=== PATIENT | female | born 1995 | race Hispanic/Latino ===

== ENCOUNTER 2022-08-11 19:00 | Inpatient (IN) | payer OTHER ==
[2022-08-11] MEDS ORDERED: Methylergonovine 0.2 MG/ML VIAL IM PRN (20:27)
[2022-08-11] MEDS ORDERED: Misoprostol 200 MCG TAB PR PRN (20:27)
[2022-08-11] MEDS ORDERED: Carboprost 250 MCG/ML AMP IM PRN (20:27)
[2022-08-11] MEDS ORDERED: Lidocaine 1% (PF) 30 ML VIAL SC PRN (20:27)
[2022-08-11] MEDS ORDERED: Promethazine HCl 25 MG/ML VIAL IM PRN (20:27)
[2022-08-11] MEDS ORDERED: Butorphanol Tartrate 1 MG/ML VIAL SLOW IVP PRN (20:27)
[2022-08-11] MEDS ORDERED: HYDROcodone/Acetaminophen 5/325 mg Tablet PO PRN (20:27)
[2022-08-11] MEDS ORDERED: Ondansetron PF 4 MG/2 ML Vial IVP PRN (20:27)
[2022-08-11] MEDS ORDERED: Diphenoxylate HCl/Atropine Tablet PO PRN (20:27)
[2022-08-11] MEDS ORDERED: Acetaminophen 500 MG TAB PO PRN (20:27)
[2022-08-11] MEDS ORDERED: Tranexamic Acid 1,000 MG/10 ML VIAL IVP PRN (20:27)
[2022-08-11] MEDS ORDERED: Ibuprofen 800 MG TAB PO PRN (20:27)
[2022-08-11] MEDS ORDERED: Fentanyl 100 MCG/2 ML VIAL SLOW IVP PRN (20:27)
[2022-08-11] MEDS ORDERED: hydrALAZINE 20 MG/ML VIAL SLOW IVP PRN (20:27)
[2022-08-11] MEDS ORDERED: Lactated Ringer's 1,000 ML IV SCH (20:30)
[2022-08-11] MEDS ORDERED: NS w/ Oxytocin 30 units 500 ML IV SCH ×3 (20:30)
[2022-08-11 22:54] VITALS: BMI 25.4
[2022-08-11] MEDS ORDERED: Fentanyl 2 mcg/Bup 0.1% Cadd 100 ML ONE (23:31)
[2022-08-11 23:49] LABS: Hemoglobin 7.8 g/dL (12.0-15.5); Mean Corpuscular HGB CONC 29.2 g/dL (32.0-36.0); Mean Corpuscular Hemoglobin 20.9 pg (27.0-33.0); Mean Corpuscular Volume 71.6 fl (81.6-98.3); Mean Platelet Volume 11.6 fl (7.4-10.4); Platelet Count 134 10x3/uL (150-450); RBC Distribution Width 18.6 % (11.5-14.5); Red Blood Cell (RBC) Count 3.73 10x6/uL (3.90-5.03); White Blood Cell (WBC) Count 7.1 10x3/uL (3.5-10.5)
[2022-08-12] MEDS ORDERED: ePHEDrine Sulfate 50 MG/10 ML VIAL SLOW IVP PRN (00:07)
[2022-08-12] MEDS ORDERED: diphenhydrAMINE 50 MG/ML VIAL IVP PRN (00:07)
[2022-08-12] MEDS ORDERED: Ondansetron PF 4 MG/2 ML Vial IVP PRN ×2 (00:07→02:31)
[2022-08-12] MEDS ORDERED: Promethazine HCl 25 MG/ML VIAL IM PRN (00:07)
[2022-08-12] MEDS ORDERED: Naloxone HCl 0.4 mg/ml Vial IVP PRN ×2 (00:07)
[2022-08-12] MEDS ORDERED: Lactated Ringer's 500 ML IV PRN (00:07)
[2022-08-12] MEDS ORDERED: Acetaminophen 325 MG TAB PO PRN (00:07)
[2022-08-12] MEDS ORDERED: Moisturizing Cream (Eucerin) 113 GM JAR TOP PRN (00:07)
[2022-08-12 00:10] LABS: Syphilis Antibody Nonreactive (Nonreactive); Syphilis Antibody Index 0.06 S/CO (<1.00 Non-Reactive)
[2022-08-12 00:11] LABS: HBSAg Index 0.15 S/CO (0-0.99); Hep B Surf Ag - L&D Non-Reactive S/CO (NonReactive)
[2022-08-12] MEDS ORDERED: Communication Order-Pharmacy FS SCH (00:15)
[2022-08-12] MEDS ORDERED: Fentanyl 2 mcg/Bupivacaine 0.1% Cassette 100 ML EPIDURAL SCH (00:15)
[2022-08-12] MEDS ORDERED: Misoprostol 100 MCG TAB PO SCH (01:00)
[2022-08-12] MEDS ORDERED: Bisacodyl 10 MG SUPP PR PRN (02:31)
[2022-08-12] MEDS ORDERED: diphenhydrAMINE 25 MG CAP PO PRN (02:31)
[2022-08-12] MEDS ORDERED: Lanolin Ointment 7 GM TUBE TOP PRN (02:31)
[2022-08-12] MEDS ORDERED: Boostrix 0.5 ML (Tdap) VIAL (>/=7 yrs of age) IM ONE (02:31)
[2022-08-12] MEDS ORDERED: NS w/ Oxytocin 30 units 500 ML IV SCH (02:31)
[2022-08-12] MEDS ORDERED: Milk Of Magnesia 30 ML UDCUP PO PRN (02:31)
[2022-08-12] MEDS ORDERED: hydrALAZINE 20 MG/ML VIAL SLOW IVP PRN (02:31)
[2022-08-12] MEDS ORDERED: HYDROcodone/Acetaminophen 5/325 mg Tablet PO PRN (02:31)
[2022-08-12] MEDS: Ibuprofen 800 MG TAB PO SCH ×3 (06:50→22:12)
[2022-08-12] MEDS: Docusate 100 MG CAP PO SCH ×2 (09:04→22:11)
[2022-08-12] MEDS: Ferrous Sulfate 325 MG TAB PO SCH ×2 (09:04→18:04)
[2022-08-12] MEDS: Prenatal Vitamin 1 TAB PO SCH (09:04)
[2022-08-13] MEDS: Ibuprofen 800 MG TAB PO SCH ×2 (06:14→14:14)
[2022-08-13 07:24] VITALS: BP 110/70; TEMP 97.9
[2022-08-13] MEDS: Docusate 100 MG CAP PO SCH (08:30)
[2022-08-13] MEDS: Ferrous Sulfate 325 MG TAB PO SCH ×2 (08:30→18:21)
[2022-08-13] MEDS: Prenatal Vitamin 1 TAB PO SCH (08:30)
== END 2022-08-13 19:00 | disposition home or self-care (01) | DRG 807 ==
LOC: CSHLD 20:02 → CSHPP 08-12 03:32
PROVIDERS: ADMIT Family Medicine; ATTEND Family Medicine
PROC: 10E0XZZ Delivery of Products of Conception, External Approach (ICD-10-PCS; principal; 2022-08-12)
DX: O80 Encounter for full-term uncomplicated delivery (principal); Z37.0 Single live birth; Z3A.39 39 weeks gestation of pregnancy; Z79.899 Other long term (current) drug therapy
CPT/HCPCS: 36415; 51702; 85027; 86780; 86850; 86900; 86901; 87340; 99285